=== PATIENT | female | born 1965 | race Caucasian/White ===

== ENCOUNTER 2017-12-12 12:09 | Observation (INO) | payer SELFPAY ==
[2017-12-12] VITALS (8 sets, daily range): BP systolic 117–184; BP diastolic 75–92; PULSE 52–61; RESP 16–20; TEMP 96.9–98.1; O2SAT 96–99
[~2017-12-12] VITALS: Ht 157.5 cm; Wt 67.2 kg
--- NOTE | 2017-12-12 12:23 | PD ---
HPI Chief Complaint: Chest Pain Time Seen by Provider: 12:16 Travel History International Travel<30 days: No Contact w/Intl Traveler<30days: No Traveled to known affect area: No History of Present Illness HPI 52-year-old female here for evaluation of chest pain. The patient reports that her symptoms started yesterday evening and have been constant since then. She describes left chest heaviness with discomfort radiating down her left arm and up her left jaw. She has some paresthesias in her left arm. She denies any personal history of cardiac disease. States that her father had an CT at the age of 35. She smokes cigarettes and occasionally marijuana. No other illicit drugs. She is slightly dyspneic. No history of DVT or PE. No fever or recent illness. No hemoptysis. [facility] Social History Tobacco Use: Yes (/ PPD) Allergies-Medications (Allergen,Severity, Reaction): Coded Allergies: No Known Allergies (Unverified , 12/12/17) Reported Meds & Prescriptions Reported Meds & Active Scripts Active No Active Prescriptions or Reported Medications Review of Systems Except as stated in HPI: all other systems reviewed are Neg Physical Exam Narrative GENERAL: Well-developed, well-nourished, appears anxious, SKIN: Focused skin assessment warm/dry. HEAD: Atraumatic. Normocephalic. EYES: Pupils equal and round. No scleral icterus. No injection or drainage. ENT: Mucous membranes pink and moist. NECK: Trachea midline. No JVD. CARDIOVASCULAR: Regular rate and rhythm. Distal pulses brisk and equal bilaterally. RESPIRATORY: No accessory muscle use. Clear to auscultation. Breath sounds equal bilaterally. GASTROINTESTINAL: Abdomen soft, non-tender, nondistended. MUSCULOSKELETAL: No obvious deformities. No clubbing. No cyanosis. No edema. NEUROLOGICAL: Awake and alert. No obvious cranial nerve deficits. Motor grossly within normal limits. Normal speech. PSYCHIATRIC: Appropriate mood and affect; insight and judgment normal. Data Data Last Documented VS Vital Signs Date Time Temp Pulse Resp B/P (MAP) Pulse Ox O2 Delivery O2 Flow Rate FiO2 12/12/17 12:50 58 20 146/92 (110) 96 Room Air 12/12/17 12:17 98.1 Orders Orders Electrocardiogram (12/12/17 12:20) Ckmb (Isoenzyme) Profile (12/12/17 12:20) Complete Blood Count With Diff (2/18/18 12:20) Comprehensive Metabolic Panel (12/12/17 12:20) Magnesium (Mg) (12/12/17 12:20) Prothrombin Time / Inr (Pt) (12/12/17 12:20) Act Partial Throm Time (Ptt) (12/12/17 12:20) Troponin I (12/12/17 12:20) Chest, Single Ap (12/12/17 12:20) Ecg Monitoring (12/12/17 12:20) Iv Access Insert/Monitor (12/12/17 12:20) Oximetry (12/12/17 12:20) Aspirin Chew (Aspirin Chew) (12/12/17 12:30) Sodium Chloride 0.9% Flush (Ns Flush) (12/12/17 12:30) Nitroglycerin Sl (Nitrostat Sl) (12/12/17 12:30) Beta Hcg (Quant/Titer) (12/12/17 12:20) CKMB (12/12/17 12:22) CKMB% (12/12/17 12:22) Admit Order (Ed Use Only) (12/12/17 13:19) Labs Laboratory Tests Test 12/12/17 12:22 White Blood Count 7.6 TH/MM3 Red Blood Count 4.54 MIL/MM3 Hemoglobin 14.4 GM/DL Hematocrit 41.1 % Mean Corpuscular Volume 90.5 FL Mean Corpuscular Hemoglobin 31.8 PG Mean Corpuscular Hemoglobin Concent 35.1 % Red Cell Distribution Width 12.4 % Platelet Count 286 TH/MM3 Mean Platelet Volume 7.1 FL Neutrophils (%) (Auto) 69.3 % Lymphocytes (%) (Auto) 22.2 % Monocytes (%) (Auto) 6.0 % Eosinophils (%) (Auto) 1.9 % Basophils (%) (Auto) 0.6 % Neutrophils # (Auto) 5.3 TH/MM3 Lymphocytes # (Auto) 1.7 TH/MM3 Monocytes # (Auto) 0.5 TH/MM3 Eosinophils # (Auto) 0.1 TH/MM3 Basophils # (Auto) 0.0 TH/MM3 CBC Comment DIFF FINAL Differential Comment Prothrombin Time 10.0 SEC Prothromb Time International Ratio 1.0 RATIO Activated Partial Thromboplast Time 27.3 SEC Blood Urea Nitrogen 16 MG/DL Creatinine 0.81 MG/DL Random Glucose 115 MG/DL Total Protein 7.9 GM/DL Albumin 4.2 GM/DL Calcium Level 9.5 MG/DL Magnesium Level 2.0 MG/DL Alkaline Phosphatase 94 U/L Aspartate Amino Transf (AST/SGOT) 33 U/L Alanine Aminotransferase (ALT/SGPT) 37 U/L Total Bilirubin 1.1 MG/DL Sodium Level 136 MEQ/L Potassium Level 3.7 MEQ/L Chloride Level 103 MEQ/L Carbon Dioxide Level 24.3 MEQ/L Anion Gap 9 MEQ/L Estimat Glomerular Filtration Rate 75 ML/MIN Total Creatine Kinase 219 U/L Creatine Kinase MB 1.7 NG/ML Creatine Kinase MB % 0.8 % Troponin I LESS THAN 0.02 NG/ML Human Chorionic Gonadotropin, Quant 3 MIU/ML MDM Medical Decision Making Medical Screen Exam Complete: Yes Emergency Medical Condition: Yes Interpretation(s) EKG: Sinus, rate 60, normal axis, normal intervals, no acute ischemic abnormality. Differential Diagnosis ACS, pneumothorax, pericarditis, PE, pneumonia, musculoskeletal pain Narrative Course Initial vital signs show heart rate 61, blood pressure 184/92, pulse ox 98% on room air, temp of 98.1F. Repeat blood pressure after sublingual nitroglycerin is 146/92. CBC is unremarkable. CMP is unremarkable. Cardiac enzymes are negative. Chest x-ray read as normal exam. Patient was made aware of all findings. She is resting comfortably. Symptoms improved with sublingual nitroglycerin 1. She was also given a full aspirin. She smokes cigarettes and has family history of cardiac disease in her father who had an CT at the age of 35. Because of this she will be admitted to the chest pain center for further cardiac evaluation. She is amenable to this plan. Case discussed with hospitalist Dr. Goncalves who will admit the patient to her service to the chest pain center for further cardiac evaluation. Diagnosis Primary Impression: Chest pain Qualified Codes: R07.9 - Chest pain, unspecified Admitting Information Admitting Physician Requests: Observation Scripts No Active Prescriptions or Reported Meds Nicholas Goff MD Dec 12, 2017 12:23
[2017-12-12] MEDS ORDERED: SODIUM CHLORIDE 0.9% FLUSH 10 ML FLUSH IVF PRN (12:30)
[2017-12-12] MEDS ORDERED: ASPIRIN 81 MG CHEW TAB PO ONE (12:30)
[2017-12-12] MEDS ORDERED: NITROGLYCERIN 0.4 MG SL 25 TABS/BTL SL ONE (12:30)
[2017-12-12 12:36] LABS: AUTOMATED NEUTROPHIL # 5.3 TH/MM3 (1.8-7.7); BASOPHIL % 0.6 % (0.0-2.0); EOSINOPHIL # 0.1 TH/MM3 (0-0.4); EOSINOPHIL % 1.9 % (0.0-4.0); HEMATOCRIT 41.1 % (35.0-46.0); HEMOGLOBIN 14.4 GM/DL (11.6-15.3); LYMPH % 22.2 % (9.0-44.0); LYMPHOCYTE # 1.7 TH/MM3 (1.0-4.8); MEAN CELL VOLUME 90.5 FL (80.0-100.0); MEAN CORPUSCULAR HEMOGLOBIN 31.8 PG (27.0-34.0); MEAN CORPUSCULAR HGB CONC 35.1 % (32.0-36.0); MEAN PLATELET VOLUME 7.1 FL (7.0-11.0); MONOCYTE # 0.5 TH/MM3 (0-0.9); NEUT % 69.3 % (16.0-70.0); PLATELET COUNT 286 TH/MM3 (150-450); RED BLOOD COUNT 4.54 MIL/MM3 (4.00-5.30); RED CELL DISTRIBUTION WIDTH 12.4 % (11.6-17.2); WHITE BLOOD COUNT 7.6 TH/MM3 (4.0-11.0)
[2017-12-12 12:43] LABS: CHLORIDE 103 MEQ/L (98-107); SODIUM (NA) 136 MEQ/L (136-145)
[2017-12-12 12:46] LABS: CALCIUM 9.5 MG/DL (8.5-10.1)
[2017-12-12 12:47] LABS: ALBUMIN 4.2 GM/DL (3.4-5.0); BICARBONATE 24.3 MEQ/L (21.0-32.0); BLOOD UREA NITROGEN 16 MG/DL (7-18); GLUCOSE,RANDOM 115 MG/DL (74-106)
--- NOTE | 2017-12-12 12:49 | RADRPT ---
EXAM DATE/TIME: 12/12/2017 12:26 [facility] COMPARISON: No previous studies available for comparison. INDICATIONS : Chest pain, left arm tingling MEDICAL HISTORY : None. SURGICAL HISTORY : None. ENCOUNTER: Initial ACUITY: 1 day PAIN SCORE: 3/10 LOCATION: Bilateral chest FINDINGS: A single view of the chest demonstrates the lungs to be symmetrically aerated without evidence of mas s, infiltrate or effusion. The cardiomediastinal contours are unremarkable. Osseous structures are intact. CONCLUSION: Normal examination. Prashanth Montez MD on December 12, 2017 at 12:47 Board Certified Radiologist. This report was verified electronically.
[2017-12-12 12:50] LABS: ALT (GPT) 37 U/L (10-53); AST (GOT) 33 U/L (15-37); CREATININE 0.81 MG/DL (0.50-1.00); GLOMERULAR FILTRATION RATE 75 ML/MIN (>89)
[2017-12-12 12:52] LABS: TOTAL BILIRUBIN ADULT 1.1 MG/DL (0.2-1.0); TOTAL PROTEIN 7.9 GM/DL (6.4-8.2)
[2017-12-12 12:53] LABS: ALKALINE PHOSPHATASE 94 U/L (45-117)
[2017-12-12 12:55] LABS: TROPONIN I LESS THAN 0.02 NG/ML (0.02-0.05)
[2017-12-12] MEDS ORDERED: NITROGLYCERIN 0.4 MG SL 25 TABS/BTL SL PRN (13:30)
[2017-12-12] MEDS ORDERED: ACETAMINOPHEN 500 MG CPLT PO PRN (13:30)
[2017-12-12] MEDS ORDERED: ONDANSETRON HCL 4 MG/2 ML VIAL IV PUSH PRN (13:30)
[2017-12-12] MEDS ORDERED: SODIUM CHLORIDE 0.9% FLUSH 10 ML FLUSH IV FLUSH PRN (13:30)
[2017-12-12] MEDS ORDERED: ACETAMINOPHEN/HYDROcodone 325 MG/7.5 MG TAB PO PRN (13:30)
--- NOTE | 2017-12-12 14:18 | HHI.HP ---
[facility] [place] No Primary Care Physician Admission Diagnosis chest pain Diagnoses: (1) Chest pain Diagnosis: Principal Chief Complaint: Chest pain Travel History International Travel<30 Days: No Contact w/Intl Traveler <30 Da: No Traveled to Known Affected Are: No History of Present Illness 52-year-old female with no chronic medical illnesses who presented to hospital because of chest discomfort. 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 She states that the discomfort in her chest was approximated 3/10 on a pain scale and the pain in her left shoulder was a 7/10 on a pain scale. The patient took 2 aspirin without any relief. She laid down and try to sleep and had a difficult time sleeping throughout the night. When she got up this morning at approximately 8:00 she was still experiencing the discomfort and she does not feels if it ever resolved. Patient went to work this morning and the pain was continuous throughout the day. She states that her father from a myocardial infarction at age 35. Patient was very concerned so she came to emergency department for evaluation. Patient indicates that she has not been feeling well over the last few weeks. She did not explain her symptoms. She states that she has not felt well. Patient had workup in emergency department and found to have unremarkable workup and is recommended patient be observed in the hospital in the chest pain center. Review of Systems Cardiovascular: COMPLAINS OF: Chest pain Except as stated in HPI: all other systems reviewed are Neg Past Family Social History Past Medical History No chronic medical illnesses Past Surgical History Tonsillectomy Appendectomy Reported Medications Reported Meds & Active Scripts Active No Active Prescriptions or Reported Medications Allergies: Coded Allergies: No Known Allergies (Unverified , 12/12/17) Family History Reviewed is significant for father at age 35 from myocardial infarction Social History She does smoke a pack a cigarettes a day since she was 13 years old. Does drink 2 alcoholic beverages daily. Does smoke marijuana daily Physical Exam Vital Signs Vital Signs Date Time Temp Pulse Resp B/P (MAP) Pulse Ox O2 Delivery O2 Flow Rate FiO2 12/12/17 14:03 58 18 119/77 (91) 12/12/17 13:23 58 18 146/86 (106) 99 Room Air 12/12/17 12:50 58 20 146/92 (110) 96 Room Air 12/12/17 12:45 97 Room Air 12/12/17 12:41 19 12/12/17 12:30 98 Room Air 12/12/17 12:17 98.1 61 18 184/92 (122) Physical Exam GENERAL: Well-developed, well-nourished, in no acute distress. alert and orientated HEENT: Head is normocephalic without any lesions or masses noted. Facial features are symmetric. Eyes: Pupils equal round reactive to light. Extraocular muscles are intact. Conjunctivae were clear. Oropharyngeal: Pharynx without any erythema edema. Tongue is midline without deviation. Buccal mucosa is moist without any masses or lesions NECK: Supple without any masses. Trachea midline no deviation. No JVD, no bruits are appreciated CARDIAC: Regular rhythm, regular rate. S1/S2 are heard. No murmurs gallops or rubs. LUNGS: Clear to auscultation bilaterally. No wheeze, rhonchi or rales. No use of accessory muscles on inspiration or expiration. ABDOMEN: Soft, nontender. Nondistended. Bowel sounds heard in all 4 quadrants. No organomegaly or masses. Negative rebound, negative guarding EXTREMITIES: No edema, pulses are equal bilaterally. No cyanosis or clubbing NEUROLOGY: Mood and affect appear appropriate. Cranial nerves II through XII grossly intact. Muscle strength 5/5 in upper and lower extremities bilaterally. Deep tendon reflexes are 2+ in upper and lower extremities bilaterally. Laboratory Laboratory Tests Test 12/12/17 12:22 White Blood Count 7.6 Red Blood Count 4.54 Hemoglobin 14.4 Hematocrit 41.1 Mean Corpuscular Volume 90.5 Mean Corpuscular Hemoglobin 31.8 Mean Corpuscular Hemoglobin Concent 35.1 Red Cell Distribution Width 12.4 Platelet Count 286 Mean Platelet Volume 7.1 Neutrophils (%) (Auto) 69.3 Lymphocytes (%) (Auto) 22.2 Monocytes (%) (Auto) 6.0 Eosinophils (%) (Auto) 1.9 Basophils (%) (Auto) 0.6 Neutrophils # (Auto) 5.3 Lymphocytes # (Auto) 1.7 Monocytes # (Auto) 0.5 Eosinophils # (Auto) 0.1 Basophils # (Auto) 0.0 CBC Comment DIFF FINAL Differential Comment Prothrombin Time 10.0 Prothromb Time International Ratio 1.0 Activated Partial Thromboplast Time 27.3 Blood Urea Nitrogen 16 Creatinine 0.81 Random Glucose 115 Total Protein 7.9 Albumin 4.2 Calcium Level 9.5 Magnesium Level 2.0 Alkaline Phosphatase 94 Aspartate Amino Transf (AST/SGOT) 33 Alanine Aminotransferase (ALT/SGPT) 37 Total Bilirubin 1.1 Sodium Level 136 Potassium Level 3.7 Chloride Level 103 Carbon Dioxide Level 24.3 Anion Gap 9 Estimat Glomerular Filtration Rate 75 Total Creatine Kinase 219 Creatine Kinase MB 1.7 Creatine Kinase MB % 0.8 Troponin I LESS THAN 0.02 Human Chorionic Gonadotropin, Quant 3 Result Diagram: 12/12/17 1222 12/12/17 1222 Imaging Last Impressions Chest X-Ray 12/12/17 1220 Signed Impressions: Service Date/Time: Tuesday, December 12, 2017 12:26 - CONCLUSION: Normal examination. MD Danyel Gallegos VTE Risk Assessment Danyel VTE Risk Assessment: No/Low Risk (score <= 1) Caprini Risk Assessment Model Point Value = 1 Point Value = 2 Point Value = 3 Point Value = 5 Age 41-60 Minor surgery BMI > 25 kg/m2 Swollen legs Varicose veins or History of unexplained or recurrent spontaneous Oral contraceptives or hormone replacement Sepsis (< 1 month) Serious lung disease, including pneumonia (< 1 month) Abnormal pulmonary function Acute myocardial infarction Congestive heart failure (< 1 month) History of inflammatory bowel disease Medical patient at bed rest Age 61-74 Arthroscopic surgery Major open surgery (> 45 min) Laparoscopic surgery (> 45 min) Malignancy Confined to bed (> 72 hours) Immobilizing plaster cast Central venous access Age >= 75 History of VTE Family history of VTE Factor V Leiden Prothrombin [id number] Lupus anticoagulant Anticardiolipin antibodies Elevated serum homocysteine Heparin-induced thrombocytopenia Other congenital or acquired thrombophilia Stroke (< 1 month) Elective arthroplasty Hip, pelvis, or leg fracture Acute spinal cord injury (< 1 month) Prophylaxis Regimen Total Risk Factor Score Risk Level Prophylaxis Regimen 0-1 Low Early ambulation 2 Moderate Order ONE of the following: *Sequential Compression Device (SCD) *Heparin 5000 units SQ BID 3-4 Higher Order ONE of the following medications: *Heparin 5000 units SQ TID *Enoxaparin/Lovenox 40 mg SQ daily (WT < 150 kg, CrCl > 30 mL/min) *Enoxaparin/Lovenox 30 mg SQ daily (WT < 150 kg, CrCl > 10-29 mL/min) *Enoxaparin/Lovenox 30 mg SQ BID (WT < 150 kg, CrCl > 30 mL/min) AND/OR *Sequential Compression Device (SCD) 5 or more Highest Order ONE of the following medications: *Heparin 5000 units SQ TID (Preferred with Epidurals) *Enoxaparin/Lovenox 40 mg SQ daily (WT < 150 kg, CrCl > 30 mL/min) *Enoxaparin/Lovenox 30 mg SQ daily (WT < 150 kg, CrCl > 10-29 mL/min) *Enoxaparin/Lovenox 30 mg SQ BID (WT < 150 kg, CrCl > 30 mL/min) AND *Sequential Compression Device (SCD) Assessment and Plan Assessment and Plan Chest pain, atypical Patient with risk factors of tobacco use, family history of heart disease Thus far patient been ruled out for acute coronary event with serial cardiac enzymes that are negative Serial EKGs showed normal sinus rhythm Patient underwent exercise stress test which was unremarkable and did not show any signs of ischemia Patient was given aspirin and nitroglycerin emergency department, without any significant improvement Discussed with the patient extensively that her discomfort is not due to any ischemia indicated had been found on the stress test. Could be secondary to musculoskeletal, anxiety, pleuritic. Notified patient to follow-up with primary medical doctor for further evaluation and management. DVT prevention Low risk, early ambulation sequential compression devices Discharge disposition Discharge home in stable condition Activity: Ad teresita. Diet: Regular diet Medications per medication reconciliation Follow-up primary medical doctor in one week Problem Qualifiers (1) Chest pain: Qualified Codes: R07.9 - Chest pain, unspecified Hipolito Farley Dec 12, 2017 14:18
[2017-12-12 14:55] LABS: TROPONIN I LESS THAN 0.02 NG/ML (0.02-0.05)
--- NOTE | 2017-12-12 15:58 | HHI.DCPOC ---
Discharge Care Plan Diagnosis: (1) Chest pain Goals to Promote Your Health * To prevent worsening of your condition and complications * To maintain your health at the optimal level Directions to Meet Your Goals Take your medications as prescribed Follow your dietary instruction Follow activity as directed Keep your appointments as scheduled Take your immunizations and boosters as scheduled If your symptoms worsen call your PCP, if no PCP go to Urgent Care Center or Emergency Room Smoking is Dangerous to Your Health. Avoid second hand smoke Call the 24-hour hour crisis hotline for domestic abuse at Hipolito Farley Dec 12, 2017 15:58
--- NOTE | 2017-12-12 16:13 | TR ---
Date Performed: 12/12/2017 Time Performed: 15:22:56 DOCTOR: Chung Whiting DRUG LIST: CLINICAL HISTORY: CHEST PAIN REASON FOR TEST: Chest pain REASON FOR ENDING: Completed Protocol OBSERVATION: Arrhythmia: None Chest Pain: None CONCLUSION: Patient tolerated HANNY protocol with Total Exercise Time=8:07 Maximum KJ=289 % Max HR Achieved=88.0% Maximum MU=073/82. Patient was asymptomatic during entire test. Testing stopped sec ondary to goals acheived, patient reached target HR. During peak exercise patient had quick upsloping ST segments. HR and BP approrpoate response to exercise, Recovery period, HR and BP returned to base line COMMENTS: Conclusion: Normal treadmill exercise. No evidence of ischemia.
[2017-12-12] MEDS ORDERED: SODIUM CHLORIDE 0.9% FLUSH 10 ML FLUSH IV FLUSH SCH (21:00)
[2017-12-13] MEDS ORDERED: ASPIRIN 325 MG TAB PO SCH (09:00)
--- NOTE | 2017-12-13 11:27 | TR ---
Date Performed: 12/12/2017 Time Performed: 15:22:56 DOCTOR: Chung Whiting DRUG LIST: CLINICAL HISTORY: CHEST PAIN REASON FOR TEST: Chest pain REASON FOR ENDING: Completed Protocol OBSERVATION: Arrhythmia: None Chest Pain: None CONCLUSION: Patient tolerated HANNY protocol with Total Exercise Time=8:07 Maximum VN=061 % Max HR Achieved=88.0% Maximum SL=160/82. Patient was asymptomatic during entire test. Testing stopped sec ondary to goals acheived, patient reached target HR. During peak exercise patient had quick upsloping ST segments. HR and BP approrpoate response to exercise, Recovery period, HR and BP returned to base line COMMENTS: Conclusion: Normal treadmill exercise. No evidence of ischemia.
--- NOTE | 2017-12-13 15:56 | EKG ---
Date Performed: 12/12/2017 Time Performed: 14:26:30 PTAGE: 52 years EKG: SINUS BRADYCARDIA INDETERMINATE AXIS BORDERLINE ECG PREVIOUS TRACING : 12/12/2017 12.23 Since previous tracing, no significant change noted DOCTOR: Leander Rodriguez Interpretating Date/Time 12/13/2017 15:54:42
--- NOTE | 2017-12-13 15:57 | EKG ---
Date Performed: 12/12/2017 Time Performed: 12:23:58 PTAGE: 52 years EKG: Sinus rhythm NORMAL ECG INTERPRETATION BASED ON A DEFAULT AGE OF 41 YEARS NO PREVIOUS TRACING DOCTOR: Leander Rodriguez Interpretating Date/Time 12/13/2017 15:54:59
== END 2017-12-12 18:07 | disposition home or self-care (01) ==
LOC: PHED 12:09 → PHEDA 13:20 → PH3A 14:02
PROVIDERS: ADMIT Hospitalist; ATTEND Hospitalist
DX: R07.89 Other chest pain (principal); R00.1 Bradycardia, unspecified; M79.602 Pain in left arm; R68.84 Jaw pain; R20.2 Paresthesia of skin; F17.210 Nicotine dependence, cigarettes, uncomplicated; Z82.49 Family history of ischemic heart disease and other diseases of the circulatory system; F12.90 Cannabis use, unspecified, uncomplicated
CPT/HCPCS: 71045; 80053; 82550; 82552; 83735; 84484; 84702; 85025; 85610; 85730; 93005; 93017; 99285; G0378